=== PATIENT | male | born 1980 | race Caucasian/White ===

== ENCOUNTER 2019-01-21 18:47 | Observation (INO) ==
[2019-01-21] MEDS ORDERED: ASPIRIN PO ONE (21:15)
[2019-01-21 21:58] LABS: BASO# 0.06 X1000 (0.0-0.2); BASO% 0.8 % (0.0-0.8); EOS# 0.41 X1000 (0.0-0.7); EOS% 5.3 % (0.0-10.0); HEMATOCRIT 41.2 % (42.0-52.0); HEMOGLOBIN 14.4 g/dL (14.0-18.0); LYMPH# 2.73 X1000 (1.2-3.4); MCH 30.4 PG (27-31); MCV 86.9 FL (81-99); MONO# 0.68 X1000 (0.11-0.59); MONO% 8.7 % (1.7-9.3); MPV 9.6 FL (7.4-10.4); NEUT# 3.92 X1000 (1.4-6.5); NEUT% 50.2 % (42.2-75.2); PLT 291 X1000 (130-400); RBC 4.74 XMIL (4.7-6.1); RDW 12.7 % (11.5-14.5)
--- NOTE | 2019-01-21 22:02 | Diag Imaging Result Doc PS360 ---
EXAM: CHEST-2 VIEWS HISTORY: chest pain TECHNIQUE: Two views COMPARISON: None. FINDINGS: The lungs are hyperexpanded. The heart is not enlarged. The vessels are small. There are no infiltrates. No pleural effusions. IMPRESSION: Likely emphysema. Electronically signed by Taiwo Jimenez 01/21/2019 10:00 PM
[2019-01-21 22:29] LABS: AGAP 12; ALB/GLOB RATIO 1.5; ALBUMIN 4.4 g/dL (3.5-5.0); ALKALINE PHOSPHATASE 95 U/L (32-122); BUN 10 mg/dL (8-22); CALCIUM 9.4 mg/dL (8.8-10.2); CHLORIDE 100 mmol/L (98-107); COSMO 279; CREATININE 0.9 mg/dL (0.7-1.2); ESTIMATED GFR > 60; GLUCOSE 47 mg/dL (70-104); GOT 25 U/L (10-34); GPT 29 U/L (10-44); LIPASE 37 U/L (13-60); POTASSIUM 3.8 mmol/L (3.5-5.1); SODIUM 142 mmol/L (136-145); TCO2 30 mmol/L (25-35); TOTAL BILIRUBIN 0.32 mg/dL (0.20-1.00); TOTAL PROTEIN 7.4 g/dL (6.3-8.3)
[2019-01-21 22:41] LABS: UR AMPHETAMINES QUAL PRESUMPTIVE POSITIVE (NONE DETECT); UR BARBITUATES QUAL NONE DETECTED (NONE DETECT); UR BENZODIAZEPIN QUAL NONE DETECTED (NONE DETECT); UR CANNABINOIDS QUAL NONE DETECTED (NONE DETECT); UR COCAINE QUAL NONE DETECTED (NONE DETECT); UR METHADONE QUAL NONE DETECTED (NONE DETECT); UR OPIATES QUAL NONE DETECTED (NONE DETECT); UR OXYCODONE QUAL NONE DETECTED (NONE DETECT); UR PCP QUAL NONE DETECTED (NONE DETECT)
--- NOTE | 2019-01-22 02:56 | HISTORY AND PHYSICAL ---
PRIMARY CARE PHYSICIAN: None. CHIEF COMPLAINT: Chest pain. HISTORY OF PRESENTING ILLNESS: A 39-year-old male without any significant past medical history who had presented to the emergency department with complaint of having chest pain. He describes it as pressure-like and sometimes sharp, and states that it was not subsiding. He was evaluated the emergency department and due to his presenting symptoms it was thought that we will place him for observation for further evaluation and management. At time of my examination he denied any headache, fever, chills, nausea, vomiting, diarrhea, hemoptysis, melena or weight changes, he complained of chest discomfort. The patient also was noted to have a low blood glucose. He does not have any history of diabetes. PAST MEDICAL HISTORY: None. PAST SURGICAL HISTORY: None. ALLERGIES: No known drug allergies. CURRENT MEDICATIONS: None. SOCIAL HISTORY: A ten pack-year history of smoking. Denies any history of alcohol. Denies any illicit drug use. FAMILY HISTORY: Positive for coronary disease in his father. REVIEW OF SYSTEMS: Fourteen point review of systems is as in the HPI. Other systems negative. PHYSICAL EXAMINATION: GENERAL: A cooperative friendly male. He is resting comfortably now. VITAL SIGNS: Temperature 98.9 degrees, pulse 90, respirations 20, blood pressure 120/79. HEENT: Atraumatic, normocephalic. Extraocular movements intact. PERRLA. NECK: Supple. CHEST: Clear to auscultation. CARDIOVASCULAR: Regular rate and rhythm. ABDOMEN: Soft. Positive bowel sounds. EXTREMITIES: No edema. NEUROLOGIC: He is awake, alert, oriented x3. : No bladder distention. SKIN: Warm. LABORATORIES AND STUDIES: WBC is 7.80, hemoglobin 14.4, hematocrit 41.2, platelets 291,000. Sodium 142, potassium 3.8, chloride 100, CO2 is 30, BUN is 10, creatinine 0.9, glucose is 47. Troponin is 0.010. Chest x-ray, possible emphysema noted. ASSESSMENT: This is a 39-year-old male without any significant past medical history who presented to the emergency department with a 1-day history of having chest pain. He was also found to be hypoglycemic and due to these presenting symptoms it was thought that we will place him for observation for further evaluation and management. ASSESSMENT: 1. Chest pain. 2. Hypoglycemia. 3. Ongoing tobacco abuse. PLAN: 1. We will admit the patient to medical floor with telemetry. 2. Continue with cardiac workup. Check EKG and serial cardiac enzymes. Have the patient continue on aspirin. We will use sublingual nitroglycerin, and morphine p.r.n. chest pain. 3. We will consult Cardiology. 4. Monitor blood glucose closely. 5. I counseled the patient on smoking cessation. 6. We will put the patient on DVT prophylaxis with SCD. 7. We will continue to follow, reassess and make further recommendations based on the patient's clinical course. cc: Elie Monk MD
[2019-01-22] MEDS: NS 1,000 ML IV SCH ×3 (03:20→23:15)
--- NOTE | 2019-01-22 07:57 | EKG Report ---
Test Performed on : 01/21/2019 6:50:20 PM Test Reason : ED. NO EKG ORDER FOR MUSE Blood Pressure : / mmHG Vent. Rate : 102 BPM Atrial Rate : 102 BPM P-R Int : 140 ms QRS Dur : 094 ms QT Int : 350 ms P-R-T Axes : 070 021 047 degrees QTc Int : 456 ms Sinus tachycardia. Otherwise normal ECG No previous ECGs available Unconfirmed Result
[2019-01-22] MEDS ORDERED: ASPIRIN PO SCH (09:00)
[2019-01-23 07:27] LABS: BASO# 0.05 X1000 (0.0-0.2); BASO% 0.9 % (0.0-0.8); EOS# 0.33 X1000 (0.0-0.7); EOS% 6.1 % (0.0-10.0); HEMATOCRIT 36.7 % (42.0-52.0); HEMOGLOBIN 12.7 g/dL (14.0-18.0); LYMPH# 2.07 X1000 (1.2-3.4); LYMPH% 38.3 % (20.5-51.1); MCH 30.3 PG (27-31); MCHC 34.6 g/dL (33-37); MCV 87.6 FL (81-99); MONO# 0.38 X1000 (0.11-0.59); MPV 9.9 FL (7.4-10.4); NEUT# 2.58 X1000 (1.4-6.5); NEUT% 47.7 % (42.2-75.2); PLT 277 X1000 (130-400); RBC 4.19 XMIL (4.7-6.1); RDW 12.5 % (11.5-14.5); WBC 5.41 X1000 (4.8-10.8)
[2019-01-23 07:57] LABS: IRON SATURATION 29 %; TIBC 319 ug/dL; TOTAL IRON 94 ug/dL (53-167); UNBOUND IRON 225 ug/dL (112-346)
[2019-01-23 08:05] LABS: AGAP 10; BUN 9 mg/dL (8-22); CALCIUM 9.1 mg/dL (8.8-10.2); CHLORIDE 102 mmol/L (98-107); COSMO 275; CREATININE 0.8 mg/dL (0.7-1.2); ESTIMATED GFR > 60; GLUCOSE 139 mg/dL (70-104); POTASSIUM 3.8 mmol/L (3.5-5.1); SODIUM 137 mmol/L (136-145); TCO2 25 mmol/L (25-35)
[2019-01-23 08:17] VITALS: BP 136/76
[2019-01-23 08:17] LABS: FERRITIN 110 ng/mL (30-400)
--- NOTE | 2019-01-23 12:44 | ECHO REPORT ---
ORDER DATE: 01/22/2019 INTERPRETING PHYSICIAN: Chadd Hutchison MD. ECHOCARDIOGRAPHIC MEASUREMENTS: 1. Interventricular septum 1.2. 2. Left ventricular posterior wall 1.1. 3. Diastolic diameter 4.8. 4. Left atrium 3.5. 5. Aorta 3.5. FINDINGS: 1. Aortic valve leaflets are trileaflet. Pulmonic valve was normal. Tricuspid valve was normal. There is trace pulmonary regurgitation. Normal left ventricular cavity size. Estimated ejection fraction of 65%. 2. There is mild tricuspid regurgitation. Peak velocity across the tricuspid valve was 2.5 m/sec. Pulmonary artery systolic pressure of 35 mmHg. There is trace mitral regurgitation. Peak velocity across the aortic valve less than 2 m/sec. There is no aortic stenosis or regurgitation. 3. There is no pericardial effusion or obvious intracardiac mass or thrombus. cc: MD Abdon Coates MD
--- NOTE | 2019-01-23 22:47 | DISCHARGE SUMMARY ---
ADMISSION DATE: 01/22/2019 DISCHARGE DATE: 01/23/2019 DISCHARGE DIAGNOSES: 1. Atypical chest pain. 2. Hypoglycemia, resolved. 3. Ongoing tobacco abuse and drug abuse. 4. Folic acid deficiency. PROCEDURES PERFORMED: 1. Chest x-ray dated 01/21/2019 impression: Possible emphysema. 2. Echocardiogram dated 01/21/2019 impression: Sinus tachycardia. 3. Echocardiogram dated 01/22/2019 impression: Aortic valve leaflets are trileaflet; pulmonic valve was normal; tricuspid valve was normal; ejection fraction of 65%; mild tricuspid regurgitation; pulmonary artery systolic pressure of 35 mmHg; no pericardial effusion or obvious intracardiac mass or thrombus. HOSPITAL COURSE: A 39-year-old male with no significant past medical history other than tobacco abuse and drug use, especially amphetamine. He presented to the emergency department and was admitted on 01/22/2019 due to chest pain that he described as sharp, nonradiating. He was evaluated in the emergency department and he was placed in observation for evaluation and management. He denied headache, fever, chills, nausea, vomiting, diarrhea, hemoptysis, melena or weight changes. He complained of chest discomfort. He was admitted also with low blood sugar, but he does not have any history of diabetes or treatment for that. I had a large conversation with the patient and his at the bedside. As per the , he spends a lot of hours without eating and he works a lot during the day, with a lot of physical activity. On top of that, when he uses drugs she is not able to wake him up and he spends most of the day sleeping and also night. That can last for a few days. During the course of his hospitalization he was eating normally, and his blood sugar never dropped. Echocardiogram did not show any valve abnormality. Troponins were negative and the chest pain went away. I had a large conversation about eating right and stopping smoking and doing drugs. He seems to understand. His always was at the bedside. He is feeling much better today. He will be discharged. PHYSICAL EXAMINATION: Vital signs: Temperature 98.3 degrees, pulse 80, respiratory rate 13, blood pressure 136/76, oxygen saturation 100% on room air. HEENT: Head normocephalic. No trauma. Poor dentition. Neck supple. No JVD. No masses. Central trachea. Chest clear to auscultation. No wheezing. No rales. Abdomen is soft, nontender, nondistended. No hepatosplenomegaly. Extremities: No edema. No clubbing, no cyanosis. Neurological examination: The patient is alert and oriented x3. No focal deficits. LABORATORY DATA: WBC 5.4, hemoglobin 12.7, hematocrit 36.7, platelets 277,000. Sodium 137, potassium 3.8, chloride 102, bicarbonate 25, BUN 9, creatinine 0.8, glucose 139, calcium 9.1. Folic acid 6.8. DISCHARGE MEDICATIONS: Folic acid 1 mg p.o. daily and multivitamin 1 tablet p.o. daily. DISCHARGE INSTRUCTIONS: Follow up with primary care doctor in 1 week. I also recommended to this patient to stop completely smoking and doing drugs. cc: Abdon Pizano MD
== END 2019-01-23 09:24 | disposition home or self-care (01) ==
LOC: ED 18:47 → 3N 18:47 → SUATTDRO 01-22 01:57
PROVIDERS: ATTEND Internal Medicine